=== PATIENT | female | born 1965 | race Caucasian/White ===

== ENCOUNTER → 2017-09-25 | Outpatient (CLI) | payer BC, OTHER | LOC: RAD 09:54 | DX: Z12.31 Encounter for screening mammogram for malignant neoplasm of breast (principal) ==

== ENCOUNTER 2018-06-03 23:55 | Inpatient (IN) | payer BC, OTHER ==
[~2018-06-03] VITALS: Ht 157.5 cm; Wt 104.3 kg
[2018-06-04] VITALS (8 sets, daily range): BP systolic 154–195; BP diastolic 74–98
[2018-06-04 00:54] LABS: URINE BILIRUBIN NEGATIVE (Negative); URINE BLOOD NEGATIVE (Negative); URINE CLARITY CLEAR; URINE COLOR YELLOW; URINE GLUCOSE-RANDOM* NEGATIVE (Negative); URINE KETONES TRACE (Negative); URINE LEUKOCYTES-REFLEX TRACE (Negative); URINE NITRITE-REFLEX NEGATIVE (Negative); URINE PROTEIN (DIPSTICK) NEGATIVE (Negative); URINE SPECIFIC GRAVITY >= 1.030 (1.005-1.035); URINE UROBILINOGEN 0.2 E.U./dl (0.2-1.0)
[2018-06-04 01:32] LABS: ABSOLUTE NEUTROPHILS 5.3 thou/uL (1.4-8.2); EOSINOPHILS 2.8 % (0.0-3.0); HEMATOCRIT 40.7 % (37.0-47.0); HEMOGLOBIN 13.8 gm/dL (12.0-15.0); LYMPHOCYTES 31.9 % (24.0-44.0); MCH 30.6 pg (26.0-34.0); MCV 89.9 fL (80.0-100.0); MONOCYTES 6.3 % (1.0-8.0); PLATELET COUNT 236 thou/uL (150-400); RBC 4.52 mil/uL (4.20-5.00); RDW 14.1 % (10.5-14.5); WBC 9.1 thou/uL (4.0-11.0)
[2018-06-04 01:40] LABS: CALCIUM 9.1 mg/dL (8.5-10.1); CREATININE 0.6 mg/dL (0.6-1.0); POTASSIUM 3.5 mmol/L (3.5-5.1)
[2018-06-04 01:45] LABS: ALBUMIN 3.7 g/dL (3.4-5.0); TOTAL BILIRUBIN 0.3 mg/dL (<0.1-1.0)
[2018-06-04 04:28] LABS: APTT 27.4 Seconds (24.5-32.8); PROTIME 10.5 Seconds (9.3-11.4)
--- NOTE | 2018-06-04 06:44 | NUR ---
PT ADMITED FROM ED AROUND 0400. VSS. ASSESSMENT CHARTED. PT DENIES ANY PAIN AT THE MOMENT, GIVEN MORPHINE IN ED PER EMAR. PRN PAIN MEDS AVAILABLE. AT BEDSIDE. NPO. WILL CONTINUE TOO MONITOR.
--- NOTE | 2018-06-04 18:11 | NUR ---
ASSUMED CARE OF PT AT 0645. C/O PAIN IN RIGHT FLANK. STARTED ON MUSCLE RELAXER AND STEROIDS. EGD WITH GI, SHOWED MILD GASTRITIS. OK TO DC PER GI. PT HAS TOO MUCH PAIN TO GO HOME, WILL TX TO SENIOR SUITES.
--- NOTE | 2018-06-04 20:11 | NUR ---
PATIENT TRANSFERRED FROM [facility], REPORT FROM FERNANDA/LORE. PATIENT ALERT AND ORIENTED X 4. UP WITH SBA. WILL CONTINUE TO MONITOR.
--- NOTE | 2018-06-05 05:07 | NUR ---
Assumed pt care at 1900. Pt A/OX4,up ad jackie without problems and calls for help as needed. VSS.C/o pain to right flank,medicated with Fentanyl once with relief reported. No c/o N/V during shift. Voiding without difficulties.Encouraged to voice needs. Resting with eyes closed at this time no distress will continue to monitor pt.
[2018-06-05 08:00] VITALS: BP 118/58
[2018-06-05] MEDS ORDERED: TRAMADOL 50 MG50 MG PO (09:11)
[2018-06-05] MEDS ORDERED: FLEXERIL PO (09:11)
[2018-06-05 12:11] VITALS: BP 154/86
--- NOTE | 2018-06-05 12:30 | NUR ---
PATIENT CARE WAS ASSUMED AT 0715.PATIENT IS ALERT AND ORIENTED X4.PATIENT HAS PAIN 1/10 ON PAIN SCALE.PATIENT IS RESTING IN BED.PATIENT IS ABLE TO AMBULATE WITH STAND BY ASSIST.IV IS INTACT AND SALINE LOCKED.PT IS RESTING IN BED.
--- NOTE | 2018-06-05 12:38 | NUR ---
PATIENT IS BEING DISCHARGE TO GO HOME WITH SELF CARE.IV WAS TAKEN OUT.D/C PAPERS WERE SIGNED, PT HAS QUESTIONS ABOUT PAIN MEDS ON D/C.PT STATED SHE WILL FOLLOW UP WITH HER DOCTOR ABOUT THE MEDS.TRANSPORTATION TOOK PATIENT TO [facility] VIA W/C.
== END 2018-06-05 12:43 | disposition home or self-care (01) | DRG 699 ==
LOC: ER 23:55 → 2N 06-04 04:18 → EROBS 06-04 04:18 → SICU 06-04 04:18 → 2N 06-04 04:56 → SICU 06-04 19:17 → ENTRNSPT 06-05 12:13 → EDTRNSPTSTS 06-05 12:16 → SICU 06-05 12:43
PROVIDERS: Emergency Medicine; ADMIT Hospitalist
PROC: 0DJ08ZZ Inspection of Upper Intestinal Tract, Via Natural or Artificial Opening Endoscopic (ICD-10-PCS; principal; 2018-06-04)
DX: N15.9 Renal tubulo-interstitial disease, unspecified (principal); Z68.41 Body mass index [BMI] 40.0-44.9, adult; K29.70 Gastritis, unspecified, without bleeding; E66.9 Obesity, unspecified; I10 Essential (primary) hypertension; K83.8 Other specified diseases of biliary tract; E11.9 Type 2 diabetes mellitus without complications; M54.5 Low back pain; Z79.1 Long term (current) use of non-steroidal anti-inflammatories (NSAID); K76.0 Fatty (change of) liver, not elsewhere classified; Z90.49 Acquired absence of other specified parts of digestive tract; Z88.5 Allergy status to narcotic agent; Z87.442 Personal history of urinary calculi
CPT/HCPCS: 15000; 15002; 62110; 62900; 70005

== ENCOUNTER → 2019-12-05 | Outpatient (CLI) | payer BC, OTHER ==
[~2019-12-05] VITALS: Ht 162.6 cm; Wt 104.3 kg
[~2019-12-05] MED LIST: BUPROPION HCL150 M1 PO; DERMACINRX5000 UNI1 PO; FLEXERIL PO; IBUPROFEN 600600 M1 PO; LEVEMIR FL100 UNIT/2 SUBQ; LISINOPRIL20 MG PO; LORCET 5-325 M1 EACH PO; LOVASTATIN 20 M20 MG PO; METFORMIN HCL500 MG PO; OMEPRAZOLE40 MG PO; TRAMADOL 50 MG50 MG PO
--- NOTE | ~2019-12-05 | HPC ---
[facility] [place] [address] PAIN MANAGEMENT CONSULTATION Name: JAKOB CARRASCO Room #: REG DARRELL Du.#: [id number] Admission: 12/05/19 Attend Phys: Ryan Narayan MD Discharge: Date of : 65 Report #: [id number] THIS REPORT FOR: cc: Agustin Nieves,Ryan Montenegro MD ~ CC: Ryan Nieves MD DATE OF SERVICE: 12/05/2019 CHIEF COMPLAINT: Low back pain with radiation into the left lateral thigh, calf and foot. I am seeing the patient, request of Dr. Nieves for lumbar radiculopathy. She has classic symptoms of L5 radicular pain, which began several weeks ago. She was taking her [id number] grandchild in and out of the swimming pool when she began noticing pain in her back, which was then progressed as shooting pain down the leg. This is not her first episode of sciatica. She had severe episode about 12 years ago and was treated locally. At that time, she saw Dr. Jax Schmitz who is a pain specialist and Dr. Schmitz gave her a single epidural injection in 2006. She felt that it might have made her worse. She eventually went on after dealing with pain to undergo a laminectomy in 2008 at [facility]. She was improved after that but continued to complain of weakness in her right leg and numbness, it has now been chronic for many years. When this episode of pain began in October, the pain was severe enough that it limits her all activities. She was using pain meds, ice and simply resting. She was unable to walk or even find a comfortable position at bed at night. She describes it as an aching sensation. Pain intensity at one point was 10/10, some of the worst she has ever experienced, but now is about a 7/10. She does not like taking pain medications and avoided all forms other than the chronic use of occasional nonsteroidal anti-inflammatory drugs. A short prescription of hydrocodone was provided, but she does not like taking it. CURRENT MEDICATIONS: Metformin, lovastatin, lisinopril, bupropion, ibuprofen, vitamin D, omeprazole, and insulin. ALLERGIES: CODEINE. PAST MEDICAL HISTORY: Positive for diabetes, requiring insulin; hypertension; kidney stones. She had a cholecystectomy in 1991, laminectomy in 2006, [address] [address] PAIN MANAGEMENT CONSULTATION Name: JAKOB CARRASCO Room #: REG CLI Keisha#: [id number] Admission: 12/05/19 Attend Phys: Ryan Narayan MD Discharge: Date of : 65 Report #: [id number] resection of pituitary tumor in June 2007 and a second surgery again in 2010. Her only other surgery was carpal tunnel surgery performed in July of 2018. REVIEW OF SYSTEMS: Positive for fatigue, weakness, headaches, chronic pain, hearing loss, dyspnea on exertion, nocturia, kidney stones, some memory loss, depression and insomnia. She is very inactive and does not want to exercise because of pain or do physical therapy, which she has tried in the past and says makes her worse. SOCIAL HISTORY: She is disabled, has not worked for over 10 years. She admits the use of 6 cigarettes a day and has smoked for about 40 years. She drinks alcohol once or twice a month. Impact pain score is high at 57/70. This describes an impact in almost all of her activities of daily living related to pain. She completed an opioid risk tool and her score is 1 for depression. PHYSICAL EXAMINATION: GENERAL: She is morbidly obese, but pleasant female. VITAL SIGNS: Blood pressure is 179/97, heart rate 89, respirations 16, O2 sat 97. She is 5 feet 4, 230, BMI is 39.5. She moves independently from sitting to standing position. Her gait is markedly antalgic. She has weakness notable in her right leg. CHEST: Clear. CARDIAC: Rhythm is regular. ABDOMEN: Obese and there is no organomegaly. MUSCULOSKELETAL: Examination of the spine reveals about a 4-inch scar in her lower back from prior surgery and tenderness there. She has pain with forward flexion, extension and lateral rotation. She has straight leg raising discomfort on the left that is consistent with an L5 radiculopathy. Deep tendon reflexes are absent in knees and ankles. She has decreased sensation along the L5 distribution on the left and she has also some numbness that is nondermatomal in the right leg. IMPRESSION: 1. Left L5 radiculopathy, post-laminectomy over 10 years ago. 2. Spinal stenosis reported by Dr. Nieves. We are attempting to retrieve MRI. 3. Tobaccoism, continued use of cigarettes despite repeated counseling. 4. Morbid obesity. 5. Insulin-dependent diabetes. 6. Hypertension. 7. Depression. RECOMMENDATIONS: Epidural steroid injection may be of benefit. Transforaminal approach or midline approach were both considered. I consider beginning with a paramedian translaminar approach on the left and if unhelpful would consider then a transforaminal approach. She is fearful of the injection given her past [facility] [address] [place] [address] PAIN MANAGEMENT CONSULTATION Name: JAKOB CARRASCO Room #: REG DARRELL Valdes#: [id number] Admission: 12/05/19 Attend Phys: Ryan Narayan MD Discharge: Date of : 65 Report #: [id number] experience in 2006. Preauthorization is required. We will see her back in the pain clinic as soon as possible, hopefully as soon as Monday for the injection. It was explained in detail including risks and benefits. Questions were answered. By: [id number] Ryan Narayan MD /nt
[2019-12-05 10:11] VITALS: BP 179/97
--- NOTE | 2019-12-05 10:42 | NUR ---
Pain Clinic Assessment: 1. History of Osteoarthritis: knees back History of Rheumatoid Arthritis: no 2. Height: 5 ft. 4 in. 162.6 cm. Weight: 230.0 lb. oz. 104.328 kg. Patient's BMI: 39.5 3. Vital Signs: BP: 179/97 Pulse: 89 Resp: 16 Temp: 02 Sat: 97 ECG Mon: 4. Pain Intensity: 7 5. Fall Risk: Dizziness: N Needs help standing or walking: N Fallen in the last 3 months: N Fall risk comments: 6. Patient on Blood Thinner: None 7. History of Hypertension: Y 8. Opioid Therapy greater than 6 weeks: Opiate Contract Signed: 9. Risk Assessment Tool Provided: 1-low risk 10. Functional Assessment Tool: 57/ 11. Recreational Drug Use: Never Drug Type: Tobacco Use: Current Every Day Smoker Tobacco Type: Cigarettes Amount or Packs/day: 6 cigs/day How Many Years: 39 Alcohol Use: Yes Frequency: Monthly Quant: 1/month
== END ==
LOC: PAIN 06:42
PROVIDERS: ATTEND Anesthesiology Pain Medicine
DX: M54.16 Radiculopathy, lumbar region (principal); M96.1 Postlaminectomy syndrome, not elsewhere classified; M48.061 Spinal stenosis, lumbar region without neurogenic claudication; F17.210 Nicotine dependence, cigarettes, uncomplicated; E66.01 Morbid (severe) obesity due to excess calories; E11.9 Type 2 diabetes mellitus without complications; F32.9 Major depressive disorder, single episode, unspecified; Z79.4 Long term (current) use of insulin; Z79.899 Other long term (current) drug therapy

== ENCOUNTER → 2019-12-09 | Outpatient (CLI) | payer BC, OTHER ==
[~2019-12-09] VITALS: Ht 162.6 cm; Wt 104.3 kg
--- NOTE | ~2019-12-09 | HPC ---
[facility] [place] [address] PAIN MANAGEMENT CONSULTATION Name: JAKOB CARRASCO Room #: REG DARRELL BillsNorbertoDorcas.#: [id number] Admission: 12/09/19 Attend Phys: Ryan Narayan MD Discharge: Date of : 65 Report #: [id number] THIS REPORT FOR: cc: Agustin Nieves,Ryan Montenegro MD ~ CC: Ryan Nieves DATE OF SERVICE: 12/09/2019 PROCEDURE NOTE PROCEDURE: Left L5-S1 transforaminal epidural injection. The patient was taken to the pain clinic today for epidural injection. We discussed both transforaminal and midline approaches. It is our intent to perform a midline approach if possible, but her extensive laminectomy precluded that once we were in the room and I chose to provide the more direct and safer route, the transforaminal approach to the epidural space. She understood and we made that slight change. The skin was prepped widely with ChloraPrep. Skin was anesthetized over the L5-S1 neural foramen. Using triplanar fluoroscopic views, I carefully advanced a 6-inch 20-gauge Tuohy epidural needle into the epidural space. A 0.25 mL of Omnipaque was injected and spread of dye was seen along the L5 nerve root, also extending slightly into the scarred epidural space. This was then followed by 3 mL of 0.5% lidocaine mixed with 80 mg of triamcinolone. She tolerated the procedure well and there were no complications. Followup visits and further injections will depend upon her response of course and we plan to see her back in the pain clinic in about 1 month. There were no complications during the procedure. By: 0855 [id number] Ryan Narayan MD /nt
[2019-12-09 08:24] VITALS: BP 177/101
--- NOTE | 2019-12-09 08:33 | NUR ---
Pain Clinic Assessment: 1. History of Osteoarthritis: knees back History of Rheumatoid Arthritis: no 2. Height: 5 ft. 4 in. 162.6 cm. Weight: 230.0 lb. oz. 104.328 kg. Patient's BMI: 39.5 3. Vital Signs: BP: 177/101 Pulse: 82 Resp: 14 Temp: 02 Sat: 98 ECG Mon: 4. Pain Intensity: 7 5. Fall Risk: Dizziness: N Needs help standing or walking: N Fallen in the last 3 months: N Fall risk comments: 6. Patient on Blood Thinner: None 7. History of Hypertension: Y 8. Opioid Therapy greater than 6 weeks: Opiate Contract Signed: 9. Risk Assessment Tool Provided: 1-low risk 10. Functional Assessment Tool: 57/ 11. Recreational Drug Use: Never Drug Type: Tobacco Use: Current Every Day Smoker Tobacco Type: Amount or Packs/day: How Many Years: Alcohol Use: Yes Frequency: Quant:
== END | disposition home or self-care (01) ==
LOC: PAIN 06:53
PROVIDERS: ATTEND Anesthesiology Pain Medicine
DX: M54.16 Radiculopathy, lumbar region (principal); M48.061 Spinal stenosis, lumbar region without neurogenic claudication; G89.29 Other chronic pain; I10 Essential (primary) hypertension; E11.9 Type 2 diabetes mellitus without complications; F17.210 Nicotine dependence, cigarettes, uncomplicated; F32.9 Major depressive disorder, single episode, unspecified; E66.01 Morbid (severe) obesity due to excess calories; Z98.890 Other specified postprocedural states; Z79.899 Other long term (current) drug therapy; Z79.4 Long term (current) use of insulin; Z87.442 Personal history of urinary calculi; Z90.49 Acquired absence of other specified parts of digestive tract; Z68.39 Body mass index [BMI] 39.0-39.9, adult

== ENCOUNTER → 2020-04-13 | Outpatient (CLI) | payer OTHER ==
[~2020-04-13] MED LIST changes: +ALBUTEROL2.5 MG/31 INH; +LIPITOR20 MG PO; +MULTI VITAMIN1 EACH PO
== END ==
LOC: LAB 08:49
PROVIDERS: ATTEND Specialist
DX: Z01.812 Encounter for preprocedural laboratory examination (principal); Z20.822 Contact with and (suspected) exposure to COVID-19

== ENCOUNTER → 2020-04-17 | Outpatient (CLI) | payer OTHER ==
[~2020-04-17] VITALS: Ht 160 cm; Wt 105.2 kg
--- NOTE | 2020-04-21 16:06 | PATH ---
[facility] [place] [address] PATHOLOGY RPT PROCEDURE Name: JAKOB CARRASCO Room #: REG DARRELL Florian.#: [id number] Admission: 04/17/20 Date of : 65 Discharge: Report #: [id number] Path Case #: [id number] [facility] Accession Number: [id number] . 01 Material submitted: . PART A: duodenum - DUODENAL BIOPSY PART B: gastrointestinal site - GASTRITIS PART C: colon - RANDOM COLON PART D: colon - ASCENDING COLON POLYP. Modifiers: ascending . 01 Clinical history: . R/O SPRUE R/O H.PYLORI R/O MICROSCOPIC COLITIS . 02 Diagnosis: A. Small bowel mucosa, duodenum rule out sprue, endoscopic biopsy: - No diagnostic abnormalities present. - Negative for villous blunting or increase in intraepithelial lymphocytes. . B. Gastric mucosa, gastritis rule out H. pylori, endoscopic biopsy: - Mild chronic active gastritis with focal intestinal metaplasia. - Negative for atrophy or dysplasia. - Negative for Helicobacter pylori (properly controlled immunohistochemical stain performed). . C. Large intestine mucosa, random colon, rule out microscopic colitis, endoscopic biopsy: - Mild scattered foci of active colitis present, see comment. - Negative for dysplasia or malignancy. . D. Polyp, ascending colon polyp, endoscopic biopsy: - Serrated polyp. - Negative for dysplasia. . LBQ 04/20/2020 1337 Local . 02 Comment: Sections of the colonic mucosa designated "random colon" show focal cryptitis, and a moderately cellular lamina propria composed predominantly of lymphocytes and plasma cells and occasional eosinophils. Surface ulceration is not present. There are no crypt abscesses, granulomas or viral inclusions. The process affects all the fragments with a similar intensity. Given the description, the differential diagnosis includes focal self-limited episode of colitis, infectious - type of colitis, acute diverticulitis, medication or drug induced colitis as well as early [address] [address] PATHOLOGY RPT PROCEDURE Name: JAKOB CARRASCO [facility]: [id number] Admission: 04/17/20 Date of : 65 Discharge: Report #: [id number] Path Case #: [id number] inflammatory bowel disease. Please correlate with clinical as well as endoscopic findings. (IUV/db; 04/20/2020) . 02 Electronically signed: . Minerva Dillon MD, Pathologist NPI- [id number] . 01 Gross description: . A. Received in formalin labeled "Carrasco, Jakob, BX duodenal rule out sprue" are multiple sharpe-brown soft tissue fragments measuring in aggregate 1.2 x 0.5 x 0.1 cm. The specimen is submitted entirely in A1. . B. Received in formalin labeled "Carrasco, Jakob, BX gastritis rule out H. pylori" are multiple sharpe-brown soft tissue fragments measuring in aggregate 0.7 x 0.5 x 0.1 cm. The specimen is submitted entirely in B1. . C. Received in formalin labeled "Carrasco, Jakob, random colon rule out microscopic colitis" are multiple sharpe-brown soft tissue fragments measuring in aggregate 0.9 x 0.4 x 0.1 cm. The specimen is submitted entirely in C1. . D. Received in formalin labeled "Jakob Carrasco, ascending colon polyp" is a sharpe-brown nodular mucosal polyp measuring 0.8 x 0.6 x 0.3 cm. The margin is inked and the specimen is bisected and submitted in D1. ([facility] [place]; 04/18/2020) [facility] 04/18/2020 1205 Local . 02 Pathologist provided ICD-10: K29.50, K52.9, K63.5 . 02 CPT . 090754, 879808, 378143, 041447, D18179 Specimen Comment: A courtesy copy of this report has been sent to [phone], [phone] Specimen Comment: 2008 Specimen Comment: Report sent to / DR MONTEJO Specimen Comment: A duplicate report has been generated due to demographic updates. Performed at: [address], [place] [id number] MD Jluis Chou MD Phone: [phone] Performed at: [address] [id number] MD Minerva Dillon MD Phone: [phone]
--- NOTE | 2020-04-22 08:05 | P ---
[facility] [place] [address] PROCEDURE REPORT Name: JAKOB CARRASCO Room #: REG DARRELL Keisha#: [id number] Admission: 04/17/20 Attend Phys: Naldo Vizcaino Discharge: Date of : 65 Report #: [id number] THIS REPORT FOR: cc: Agustin Nieves,Agustin Nayak,Naldo Pereira MD ~ DATE OF SERVICE: 04/17/2020 PROCEDURE PERFORMED: Upper endoscopy with biopsies. HISTORY OF PRESENT ILLNESS: The patient is a 55-year-old female with a history of intermittent right upper quadrant abdominal pain, not correlated with food. The patient has had a previous laparoscopic cholecystectomy years ago. She reports mild nausea at times. She does have a history of gastroesophageal reflux disease, takes Prilosec 40 mg on a daily basis. Denies any heartburn in general. Denies any dysphagia or odynophagia. She does take Advil on a daily basis, also history of loose stools on metformin, recently decreased dose with no significant change. Plan is for EGD and colonoscopy today. DESCRIPTION OF PROCEDURE: The risks and benefits of the procedure were explained to the patient, those risks including but not limited to bleeding, perforation and the risk of sedation. She understood these risks and gave informed consent. Sedation was given using propofol per anesthesia. Next, using a standard Olympus upper endoscope, the scope was placed in the patient's mouth and advanced under direct vision through the esophagus, stomach and into the second portion of the duodenum. The larynx was normal in appearance. The esophagus was normal throughout. The GE junction was normal. Overall, the gastric mucosa was normal in the fundus and body. A mild gastritis was noted in the antrum. Biopsies were obtained to rule out H. pylori. No evidence of ulcerations or erosions. The pylorus was normal and patent. The duodenal bulb, first and second portion were all normal. Biopsies were obtained to rule out the possibility of celiac sprue. The scope was then withdrawn and the procedure terminated. The patient tolerated the procedure well. IMPRESSION: 1. Mild gastritis. 2. Otherwise, normal upper endoscopy. RECOMMENDATIONS: 1. Await biopsy results. 2. Continue PPI therapy. 3. We will proceed with colonoscopy next day. [address] [address] PROCEDURE REPORT Name: JAKOB CARRASCO Room #: REG DARRELL Valdes#: [id number] Admission: 04/17/20 Attend Phys: Naldo Vizcaino Discharge: Date of : 65 Report #: [id number] Thank you for allowing me to participate in her care. <ELECTRONICALLY SIGNED> By: Naldo Parikh MD 04/22/20 0805 0836 [id number] Naldo Parikh MD /nt
--- NOTE | 2020-04-22 08:05 | P ---
[facility] [place] [address] PROCEDURE REPORT Name: JAKOB CARRASCO Room #: REG DARRELL Florian.#: [id number] Admission: 04/17/20 Attend Phys: Naldo Vizcaino Discharge: Date of : 65 Report #: [id number] THIS REPORT FOR: cc: Agustin Nieves,Agustin Nayak,Naldo Pereira MD ~ DATE OF SERVICE: 04/17/2020 PROCEDURE PERFORMED: Colonoscopy with polypectomy. HISTORY OF PRESENT ILLNESS: The patient is a 55-year-old female who presents today for screening colonoscopy. No family history of colon cancer. She does report loose stools at times, thought to maybe be due to metformin, which recently they decreased the dose. DESCRIPTION OF PROCEDURE: The risks and benefits of the procedure were explained to the patient, those risks including but not limited to bleeding, perforation and the risk of sedation. She understood these risks and gave informed consent. Sedation was given using propofol per anesthesia. Next, a digital rectal exam was initially performed, which was normal. Next, using a standard Olympus colonoscope, the scope was placed in the patient's anus and advanced under direct vision to the cecum. The overall prep was good. The cecum and ileocecal valve were normal in appearance. In the proximal ascending colon, a 6 mm sessile polyp was noted. This was removed by snare cautery, otherwise normal. Random biopsies were obtained today to rule out the possibility of microscopic colitis. The transverse, descending and sigmoid colon were normal. The rectal mucosa was normal. On retroflexion, no abnormalities were noted. The scope was then withdrawn and the procedure terminated. The patient tolerated the procedure well. IMPRESSION: 1. Small colonic polyp. 2. Otherwise, normal colonoscopy. RECOMMENDATIONS: 1. Await biopsy results. 2. If polyp is hyperplastic, repeat in 10 years; if adenomatous polyp, repeat in 5 years. 3. We will discuss adding Levsin on a p.r.n. basis for patient's intermittent right upper quadrant abdominal pain. [address] [address] PROCEDURE REPORT Name: JAKOB CARRASCO Room #: REG DARRELL Valdes#: [id number] Admission: 04/17/20 Attend Phys: Naldo Vizcaino Discharge: Date of : 65 Report #: [id number] Thank you for allowing me to participate in her care. <ELECTRONICALLY SIGNED> By: Naldo Parikh MD 04/22/20 0805 0904 0940 Naldo Parikh MD /nt
== END | disposition home or self-care (01) ==
LOC: GI 07:04
PROVIDERS: ATTEND Specialist
DX: Z12.11 Encounter for screening for malignant neoplasm of colon (principal); K29.50 Unspecified chronic gastritis without bleeding; K52.9 Noninfective gastroenteritis and colitis, unspecified; D12.2 Benign neoplasm of ascending colon; K31.89 Other diseases of stomach and duodenum; I10 Essential (primary) hypertension; F32.9 Major depressive disorder, single episode, unspecified; E11.9 Type 2 diabetes mellitus without complications; J44.9 Chronic obstructive pulmonary disease, unspecified; K21.9 Gastro-esophageal reflux disease without esophagitis; F17.210 Nicotine dependence, cigarettes, uncomplicated; Z88.5 Allergy status to narcotic agent; Z98.890 Other specified postprocedural states; Z79.899 Other long term (current) drug therapy; Z79.84 Long term (current) use of oral hypoglycemic drugs; Z90.49 Acquired absence of other specified parts of digestive tract; Z98.51 Tubal ligation status
CPT/HCPCS: 62110; 62900

== ENCOUNTER → 2020-05-15 | Outpatient (CLI) | payer OTHER | LOC: ULTRA 08:50 | PROVIDERS: ATTEND Neuromusculoskeletal Medicine & OMM | DX: K76.0 Fatty (change of) liver, not elsewhere classified (principal) ==

== ENCOUNTER → 2020-09-11 | Outpatient (CLI) | payer OTHER | LOC: ULTRA 13:13 | PROVIDERS: ATTEND Neuromusculoskeletal Medicine & OMM | DX: I73.9 Peripheral vascular disease, unspecified (principal) ==

== ENCOUNTER → 2021-01-18 | Outpatient (CLI) | payer OTHER ==
[~2021-01-18] VITALS: Ht 162.6 cm; Wt 105.3 kg
[2021-01-18 10:17] VITALS: BP 182/94
--- NOTE | 2021-01-18 10:27 | NUR ---
Pain Clinic Assessment: 1. History of Osteoarthritis: knees back History of Rheumatoid Arthritis: no 2. Height: 5 ft. 4 in. 162.6 cm. Weight: 232.2 lb. oz. 105.325 kg. Patient's BMI: 39.8 3. Vital Signs: BP: 182/94 Pulse: 84 Resp: 16 Temp: 02 Sat: 100 ECG Mon: 4. Pain Intensity: 6 5. Fall Risk: Dizziness: N Needs help standing or walking: N Fallen in the last 3 months: N Fall risk comments: 6. Patient on Blood Thinner: None 7. History of Hypertension: Y 8. Opioid Therapy greater than 6 weeks: Opiate Contract Signed: 9. Risk Assessment Tool Provided: 1-low risk 10. Functional Assessment Tool: 57/70 11. Recreational Drug Use: Never Drug Type: Tobacco Use: Current Every Day Smoker Tobacco Type: Cigarettes Amount or Packs/day: 3 PER DAY How Many Years: Alcohol Use: Yes Frequency: Special Occasions Quant: 1
== END ==
LOC: PAIN 01-16 08:01
PROVIDERS: ATTEND Anesthesiology Pain Medicine
DX: M54.16 Radiculopathy, lumbar region (principal); M96.1 Postlaminectomy syndrome, not elsewhere classified; G89.29 Other chronic pain; M79.651 Pain in right thigh; M79.652 Pain in left thigh; Z79.4 Long term (current) use of insulin; Z79.899 Other long term (current) drug therapy; Z88.8 Allergy status to other drugs, medicaments and biological substances

== ENCOUNTER → 2021-01-25 | Outpatient (CLI) | payer OTHER ==
[~2021-01-25] VITALS: Ht 162.6 cm; Wt 105.5 kg
[2021-01-25 11:18] VITALS: BP 198/93
--- NOTE | 2021-01-25 11:30 | NUR ---
Pain Clinic Assessment: 1. History of Osteoarthritis: knees back History of Rheumatoid Arthritis: no 2. Height: 5 ft. 4 in. 162.6 cm. Weight: 232.6 lb. oz. 105.507 kg. Patient's BMI: 39.9 3. Vital Signs: BP: 198/93 Pulse: 89 Resp: 20 Temp: 02 Sat: 99 ECG Mon: 4. Pain Intensity: 7 5. Fall Risk: Dizziness: N Needs help standing or walking: N Fallen in the last 3 months: N Fall risk comments: 6. Patient on Blood Thinner: None 7. History of Hypertension: Y 8. Opioid Therapy greater than 6 weeks: Opiate Contract Signed: 9. Risk Assessment Tool Provided: 1-low risk 10. Functional Assessment Tool: 57/70 11. Recreational Drug Use: Never Drug Type: Tobacco Use: Current Every Day Smoker Tobacco Type: Cigarettes Amount or Packs/day: 3 CIGGS How Many Years: Alcohol Use: Yes Frequency: Special Occasions Quant: 2
== END | disposition home or self-care (01) ==
LOC: PAIN 06:59
PROVIDERS: ATTEND Anesthesiology Pain Medicine
DX: M54.16 Radiculopathy, lumbar region (principal); G89.29 Other chronic pain; I10 Essential (primary) hypertension; E11.9 Type 2 diabetes mellitus without complications; M19.90 Unspecified osteoarthritis, unspecified site; F17.210 Nicotine dependence, cigarettes, uncomplicated; Z98.890 Other specified postprocedural states; Z79.899 Other long term (current) drug therapy; Z88.6 Allergy status to analgesic agent